=== PATIENT | female | born 1940 | race Caucasian/White ===

== ENCOUNTER → 2022-03-18 | Outpatient (CLI) | payer MEDICARE | END | disposition home or self-care (01) | LOC: SHCH 09:37 | PROVIDERS: ATTEND Internal Medicine Cardiovascular Disease | DX: Q21.1 Atrial septal defect (principal); I47.1 Supraventricular tachycardia; I08.0 Rheumatic disorders of both mitral and aortic valves; I11.9 Hypertensive heart disease without heart failure; M19.90 Unspecified osteoarthritis, unspecified site | CPT/HCPCS: 93306 ==

== ENCOUNTER → 2023-02-18 | Outpatient (CLI) | payer MEDICARE | END | disposition home or self-care (01) | LOC: SHCH 09:55 | PROVIDERS: ATTEND Internal Medicine Cardiovascular Disease | DX: I08.0 Rheumatic disorders of both mitral and aortic valves (principal); I11.9 Hypertensive heart disease without heart failure | CPT/HCPCS: 93306 ==

== ENCOUNTER → 2023-07-06 | Outpatient (CLI) | payer MEDICARE ==
[2023-07-06 16:36] LABS: CREATININE 1.1 mg/dL (0.5-1.5); POTASSIUM 4.5 mmol/L (3.5-5.1)
== END | disposition home or self-care (01) ==
LOC: LAB 11:28
PROVIDERS: ATTEND Internal Medicine Cardiovascular Disease
DX: I10 Essential (primary) hypertension (principal)
CPT/HCPCS: 36415; 80048

== ENCOUNTER → 2023-08-09 | Outpatient (CLI) | payer MEDICARE | END | disposition home or self-care (01) | LOC: SHCH 10:29 | PROVIDERS: ATTEND Internal Medicine Cardiovascular Disease | DX: I08.0 Rheumatic disorders of both mitral and aortic valves (principal); I11.9 Hypertensive heart disease without heart failure | CPT/HCPCS: 93306 ==

== ENCOUNTER → 2023-09-26 | Outpatient (CLI) | payer MEDICARE | END | disposition home or self-care (01) | LOC: SHCH 08:24 | PROVIDERS: ATTEND Internal Medicine Cardiovascular Disease | DX: Q27.1 Congenital renal artery stenosis (principal); I10 Essential (primary) hypertension; I1A.0 Resistant hypertension; R09.89 Other specified symptoms and signs involving the circulatory and respiratory systems | CPT/HCPCS: 93975 ==

== ENCOUNTER → 2023-09-29 | Outpatient (CLI) | payer MEDICARE ==
[2023-09-29 13:10] LABS: CREATININE 1.1 mg/dL (0.5-1.5); MAGNESIUM 2.2 mg/dL (1.80-2.40); POTASSIUM 4.8 mmol/L (3.5-5.1)
== END | disposition home or self-care (01) ==
LOC: LAB 10:38
PROVIDERS: ATTEND Internal Medicine Cardiovascular Disease
DX: I10 Essential (primary) hypertension (principal); R06.09 Other forms of dyspnea; R42 Dizziness and giddiness
CPT/HCPCS: 36415; 80048; 83735

== ENCOUNTER → 2023-10-11 | Outpatient (CLI) | payer MEDICARE ==
[2023-10-11 12:12] LABS: BASOPHILS # (AUTO) 0.03 K/uL (0.00-0.20); BASOPHILS % (AUTO) 0.4 % (0.0-5.0); EOSINOPHILS # (AUTO) 0.13 K/uL (0.00-0.70); EOSINOPHILS % (AUTO) 1.8 % (0.0-8.0); IMMATURE GRANULOCYTE ABSOLUTE 0.03 K/uL (0-1); LYMPHOCYTES % (AUTO) 12.8 % (21.0-51.0); MEAN CORPUSCULAR HEMOGLOBIN 30.8 pg (27.0-33.0); MEAN CORPUSCULAR HGB CONC 33.6 g/dL (32.0-36.0); MEAN CORPUSCULAR VOLUME 91.6 fL (79-99); MONOCYTES % (AUTO) 13.1 % (3.0-13.0); NEUTROPHILS # (AUTO) 5.3 K/uL (1.8-7.7); NEUTROPHILS % (AUTO) 71.5 % (40.0-77.0); PLATELET COUNT (AUTO) 184 K/uL (130-400); RED BLOOD CELL COUNT(AUTO) 3.93 MIL/uL (4.00-5.50); RED CELL DISTRIBUTION WIDTH 14.3 % (11.0-15.5); WHITE BLOOD COUNT (AUTO) 7.4 K/uL (4.8-10.8)
== END | disposition home or self-care (01) ==
LOC: LAB 09:20
PROVIDERS: ATTEND Internal Medicine Cardiovascular Disease
DX: I10 Essential (primary) hypertension (principal); Z79.01 Long term (current) use of anticoagulants
CPT/HCPCS: 36415; 83735; 85025

== ENCOUNTER 2023-11-10 06:20 | Day surgery (SDC) | payer MEDICARE ==
[2023-11-08 11:00] LABS: BASOPHILS # (AUTO) 0.05 K/uL (0.00-0.20); BASOPHILS % (AUTO) 0.6 % (0.0-5.0); EOSINOPHILS % (AUTO) 5.1 % (0.0-8.0); HEMATOCRIT 39.6 % (36-48); IMMATURE GRANULOCYTE ABSOLUTE 0.02 K/uL (0-1); LYMPHOCYTES # (AUTO) 1.1 K/uL (1.0-4.8); LYMPHOCYTES % (AUTO) 13.7 % (21.0-51.0); MEAN CORPUSCULAR HEMOGLOBIN 30.4 pg (27.0-33.0); MEAN CORPUSCULAR HGB CONC 33.1 g/dL (32.0-36.0); MEAN CORPUSCULAR VOLUME 91.9 fL (79-99); MONOCYTES # (AUTO) 0.7 K/uL (0.1-1.0); MONOCYTES % (AUTO) 8.3 % (3.0-13.0); NEUTROPHILS # (AUTO) 5.6 K/uL (1.8-7.7); PLATELET COUNT (AUTO) 169 K/uL (130-400); RED BLOOD CELL COUNT(AUTO) 4.31 MIL/uL (4.00-5.50); RED CELL DISTRIBUTION WIDTH 14.4 % (11.0-15.5); WHITE BLOOD COUNT (AUTO) 7.8 K/uL (4.8-10.8)
[2023-11-08 11:09] LABS: CREATININE 1.1 mg/dL (0.5-1.5); POTASSIUM 5.3 mmol/L (3.5-5.1)
[2023-11-08 11:18] VITALS: BP 113/58; PULSE 69; RESP 17
[2023-11-08 12:12] LABS: INR 1.21 (0.85-1.15); PROTHROMBIN TIME 13.9 SEC (9.6-11.6)
[2023-11-08 12:13] LABS: PARTIAL THROMBOPLASTIN TIME 31.1 SEC (26.3-35.5)
[2023-11-10] VITALS (12 sets, daily range): BP systolic 111–128; BP diastolic 47–59; PULSE 58–74; RESP 13–16
[~2023-11-10] VITALS: Ht 167.6 cm; Wt 82.8 kg
[~2023-11-10 06:20] MED LIST: AMIO200T68 PO; APIX5TAB PO; DILT240C46 PO; FERR-82 PO; LEVO88CA4 PO; MULT-1367 PO; OMEP20CA12 PO; SPIR25TA6 PO; vitamin c PO
[2023-11-10] MEDS ORDERED: 0.9%NACL 1000ML 1,000 ML IV ONE (07:25)
[2023-11-10] MEDS ORDERED: NALOXONE HCL 0.4 MG/1 ML ML ONE (08:06)
[2023-11-10] MEDS ORDERED: FLUMAZENIL 0.1MG/1ML 5ML VIAL IV ONE (08:07)
[2023-11-10] MEDS: MIDAZOLAM HCL 1 MG/ML 2ML VIAL IVP ONE (08:48)
[2023-11-10] MEDS: FENTANYL CITRATE PF 50 MCG/1 ML 2ML VIAL IVP ONE (08:49)
== END 2023-11-10 09:36 | disposition home or self-care (01) ==
LOC: DAH 06:20
PROVIDERS: ATTEND Internal Medicine Cardiovascular Disease
DX: I48.19 Other persistent atrial fibrillation (principal); I34.0 Nonrheumatic mitral (valve) insufficiency; I47.19 Other supraventricular tachycardia; I49.1 Atrial premature depolarization; M19.90 Unspecified osteoarthritis, unspecified site; I10 Essential (primary) hypertension; I25.2 Old myocardial infarction; Z79.01 Long term (current) use of anticoagulants; Z82.3 Family history of stroke; Z88.8 Allergy status to other drugs, medicaments and biological substances; Z79.899 Other long term (current) drug therapy; Z98.890 Other specified postprocedural states
CPT/HCPCS: 80048; 85025; 85610; 85730; 36415; 92960; 93005 ×2; J3010; J7030; J2250; A4620; A4215; A4223 ×3; A4657; A7002; A4222; A4221; A4663; A4216; A4606; 99152; J2310; J3490; G0500

== ENCOUNTER → 2023-11-22 | Outpatient (CLI) | payer MEDICARE ==
[2023-11-22 11:04] LABS: BASOPHILS # (AUTO) 0.05 K/uL (0.00-0.20); BASOPHILS % (AUTO) 0.7 % (0.0-5.0); EOSINOPHILS # (AUTO) 0.28 K/uL (0.00-0.70); EOSINOPHILS % (AUTO) 3.9 % (0.0-8.0); HEMATOCRIT 39.2 % (36-48); IMMATURE GRANULOCYTE ABSOLUTE 0.05 K/uL (0-1); LYMPHOCYTES # (AUTO) 1.2 K/uL (1.0-4.8); LYMPHOCYTES % (AUTO) 16.8 % (21.0-51.0); MEAN CORPUSCULAR HEMOGLOBIN 30.4 pg (27.0-33.0); MEAN CORPUSCULAR HGB CONC 32.7 g/dL (32.0-36.0); MEAN CORPUSCULAR VOLUME 93.1 fL (79-99); MONOCYTES % (AUTO) 13.3 % (3.0-13.0); NEUTROPHILS # (AUTO) 4.7 K/uL (1.8-7.7); NEUTROPHILS % (AUTO) 64.6 % (40.0-77.0); PLATELET COUNT (AUTO) 269 K/uL (130-400); RED BLOOD CELL COUNT(AUTO) 4.21 MIL/uL (4.00-5.50); RED CELL DISTRIBUTION WIDTH 13.8 % (11.0-15.5); WHITE BLOOD COUNT (AUTO) 7.2 K/uL (4.8-10.8)
[2023-11-22 11:28] LABS: ALBUMIN 3.6 g/dL (3.5-5.0); BILIRUBIN,TOTAL 0.4 mg/dL (0.2-1.0); CREATININE 1.2 mg/dL (0.5-1.0); THYROID STIMULATING HORMONE 4.73 uIU/mL (0.36-3.74); TOTAL PROTEIN, SERUM 7.6 g/dL (6.0-8.3)
== END | disposition home or self-care (01) ==
LOC: LAB 08:54
PROVIDERS: ATTEND Internal Medicine Cardiovascular Disease
DX: I34.0 Nonrheumatic mitral (valve) insufficiency (principal); E03.9 Hypothyroidism, unspecified; Z79.01 Long term (current) use of anticoagulants
CPT/HCPCS: 36415; 80053; 84439; 84443; 85025

== ENCOUNTER 2023-12-15 05:50 | Day surgery (SDC) | payer MEDICARE ==
[2023-12-13 10:05] LABS: BASOPHILS # (AUTO) 0.04 K/uL (0.00-0.20); BASOPHILS % (AUTO) 0.7 % (0.0-5.0); EOSINOPHILS # (AUTO) 0.31 K/uL (0.00-0.70); EOSINOPHILS % (AUTO) 5.1 % (0.0-8.0); HEMATOCRIT 38.4 % (36-48); IMMATURE GRANULOCYTE ABSOLUTE 0.02 K/uL (0-1); LYMPHOCYTES # (AUTO) 1.1 K/uL (1.0-4.8); LYMPHOCYTES % (AUTO) 18.8 % (21.0-51.0); MEAN CORPUSCULAR HEMOGLOBIN 30.3 pg (27.0-33.0); MEAN CORPUSCULAR HGB CONC 33.3 g/dL (32.0-36.0); MONOCYTES # (AUTO) 0.7 K/uL (0.1-1.0); NEUTROPHILS # (AUTO) 3.9 K/uL (1.8-7.7); NEUTROPHILS % (AUTO) 64.1 % (40.0-77.0); PLATELET COUNT (AUTO) 202 K/uL (130-400); RED BLOOD CELL COUNT(AUTO) 4.22 MIL/uL (4.00-5.50); RED CELL DISTRIBUTION WIDTH 15.2 % (11.0-15.5); WHITE BLOOD COUNT (AUTO) 6.1 K/uL (4.8-10.8)
[2023-12-13 10:14] VITALS: BP 129/52; PULSE 52; RESP 16
[2023-12-13 10:16] LABS: POTASSIUM 4.7 mmol/L (3.5-5.1)
[2023-12-13 10:18] LABS: INR <= 0.93 (0.85-1.15)
[2023-12-13 10:19] LABS: PARTIAL THROMBOPLASTIN TIME 29.8 SEC (26.3-35.5)
[2023-12-13 10:22] LABS: APPEARANCE,URINE CLEAR (CLEAR); BILIRUBIN,URINE NEGATIVE (NEGATIVE); COLOR,URINE COLORLESS (YELLOW); GLUCOSE, URINE (UA) NEGATIVE (NEGATIVE); KETONES,URINE NEGATIVE (NEGATIVE); LEUKOCYTE ESTERASE ,URINE 75 Leu/uL (NEGATIVE); NITRATE,URINE NEGATIVE (NEGATIVE); OCCULT BLOOD,URINE NEGATIVE (NEGATIVE); PROTEIN,URINE NEGATIVE (NEGATIVE); UROBILINOGEN,URINE 0.2 mg/dL (0.2-1.0)
[2023-12-13 10:27] LABS: ADD UA MICROSCOPIC YES
[2023-12-13 10:34] LABS: BACTERIA,URINE FEW /HPF (None Seen); SQUAMOUS EPITHELIAL CELL,UR RARE /HPF (0-2)
[2023-12-13 10:37] LABS: B-TYPE NATRIURETIC PEPTIDE 219 pg/mL (0-100)
[2023-12-15] VITALS (21 sets, daily range): BP systolic 91–156; BP diastolic 33–107; PULSE 48–65; RESP 11–16
[~2023-12-15] VITALS: Ht 168.9 cm; Wt 82.1 kg
[~2023-12-15 05:50] MED LIST changes: -FERR-82 PO; +MAGNESIUM PO; +ZINC PO
[2023-12-15] MEDS ORDERED: FLUMAZENIL 0.1MG/1ML 5ML VIAL IV ONE (07:25)
[2023-12-15] MEDS ORDERED: NALOXONE HCL 0.4 MG/1 ML ML ONE (07:25)
[2023-12-15] MEDS: LIDOCAINE HCL 2% VISCOUS 15 ML UDCUP PO ONE (07:27)
[2023-12-15] MEDS: 0.9%NACL 1000ML 1,000 ML IV ONE (07:28)
[2023-12-15] MEDS ORDERED: IOHEXOL-350 50ML VIAL IV ONE (08:41)
[2023-12-15] MEDS ORDERED: BIVALIRUDIN 250 MG/VIAL IV ONE (08:41)
[2023-12-15] MEDS ORDERED: LIDOCAINE HCL 400MG/20ML VIAL ONE (08:41)
[2023-12-15] MEDS ORDERED: FENTANYL CITRATE PF 50 MCG/1 ML 2ML VIAL ONE (08:41)
[2023-12-15] MEDS ORDERED: HEPARIN 10,000 UNIT/10ML (1,000 UNIT/ML) VIAL ONE (08:41)
[2023-12-15] MEDS ORDERED: MIDAZOLAM HCL 1 MG/ML 2ML VIAL ONE (08:41)
[2023-12-15] MEDS ORDERED: IOHEXOL 350 MG/ML 100ML INFUS..BTL IV ONE (08:41)
[2023-12-15] MEDS ORDERED: NITROGLYCERIN 50MG VIAL ONE (08:41)
[2023-12-15] MEDS: MIDAZOLAM HCL 1 MG/ML 2ML VIAL IVP ONE (09:14)
[2023-12-15] MEDS: FENTANYL CITRATE PF 50 MCG/1 ML 2ML VIAL IVP ONE (09:15)
[2023-12-15] MEDS ORDERED: LABETALOL 20MG VIAL IV ONE (10:24)
[2023-12-15] MEDS ORDERED: 0.9%NACL 1000ML 1,000 ML IV SCH (11:00)
== END 2023-12-15 14:40 | disposition home or self-care (01) ==
LOC: DAH 05:50
PROVIDERS: ATTEND Internal Medicine Cardiovascular Disease
DX: I34.0 Nonrheumatic mitral (valve) insufficiency (principal); Q21.12 Patent foramen ovale; I27.20 Pulmonary hypertension, unspecified; I25.10 Atherosclerotic heart disease of native coronary artery without angina pectoris; I48.0 Paroxysmal atrial fibrillation; M19.90 Unspecified osteoarthritis, unspecified site; I10 Essential (primary) hypertension; I25.2 Old myocardial infarction; E03.9 Hypothyroidism, unspecified; Z79.01 Long term (current) use of anticoagulants; Z79.899 Other long term (current) drug therapy; Z98.890 Other specified postprocedural states; Z90.89 Acquired absence of other organs; Z90.710 Acquired absence of both cervix and uterus; Z72.89 Other problems related to lifestyle; Z79.890 Hormone replacement therapy
CPT/HCPCS: 80048; 83880 ×2; 85025; 85610; 85730; 87088; 81001; 36415 ×2; 71045; 93005; 93460; 87077; 87186; 93325; 93312; C1894 ×3; C1769; C1760; J3010 ×2; J3490 ×3; J7030; J2250; J1644; Q9967 ×2; A4215; A4335; A4222; A4221; A4663; A4216; A4606; Q9965 ×2; A4223 ×3; A4554; 96360; 96361; 99156; 99157; J0583; J2310

== ENCOUNTER → 2023-12-29 | Outpatient (CLI) | payer MEDICARE ==
[~2023-12-29] MED LIST changes: -AMIO200T68 PO
[2023-12-29 12:29] LABS: CREATININE 1.1 mg/dL (0.5-1.0)
== END | disposition home or self-care (01) ==
LOC: LAB 11:06
PROVIDERS: ATTEND Internal Medicine Cardiovascular Disease
DX: I10 Essential (primary) hypertension (principal)
CPT/HCPCS: 36415; 80048

== ENCOUNTER → 2024-01-06 | Outpatient (CLI) | payer MEDICARE | END | disposition home or self-care (01) | LOC: RAH 08:21 | PROVIDERS: ATTEND Family Medicine | DX: N18.9 Chronic kidney disease, unspecified (principal); R94.4 Abnormal results of kidney function studies | CPT/HCPCS: 76770 ==

== ENCOUNTER 2024-02-21 12:04 | Emergency (ER) | payer MEDICARE ==
[~2024-02-21] VITALS: Ht 167.6 cm; Wt 78.5 kg
[2024-02-21 12:55] LABS: BASOPHILS # (AUTO) 0.03 K/uL (0.00-0.20); BASOPHILS % (AUTO) 0.4 % (0.0-5.0); EOSINOPHILS # (AUTO) 0.18 K/uL (0.00-0.70); EOSINOPHILS % (AUTO) 2.4 % (0.0-8.0); HEMATOCRIT 38.1 % (36-48); IMMATURE GRANULOCYTE ABSOLUTE 0.02 K/uL (0-1); LYMPHOCYTES # (AUTO) 1.2 K/uL (1.0-4.8); LYMPHOCYTES % (AUTO) 15.5 % (21.0-51.0); MEAN CORPUSCULAR HEMOGLOBIN 30.6 pg (27.0-33.0); MEAN CORPUSCULAR HGB CONC 33.6 g/dL (32.0-36.0); MEAN CORPUSCULAR VOLUME 91.1 fL (79-99); MONOCYTES # (AUTO) 0.7 K/uL (0.1-1.0); MONOCYTES % (AUTO) 8.8 % (3.0-13.0); NEUTROPHILS # (AUTO) 5.5 K/uL (1.8-7.7); NEUTROPHILS % (AUTO) 72.6 % (40.0-77.0); PLATELET COUNT (AUTO) 201 K/uL (130-400); RED BLOOD CELL COUNT(AUTO) 4.18 MIL/uL (4.00-5.50); RED CELL DISTRIBUTION WIDTH 14.5 % (11.0-15.5); WHITE BLOOD COUNT (AUTO) 7.6 K/uL (4.8-10.8)
[2024-02-21 13:06] LABS: CREATININE 1.3 mg/dL (0.5-1.0); POTASSIUM 4.3 mmol/L (3.5-5.1)
[2024-02-21 13:10] LABS: ALBUMIN 3.6 g/dL (3.5-5.0); BILIRUBIN,TOTAL 0.3 mg/dL (0.2-1.0); MAGNESIUM 2.2 mg/dL (1.80-2.40); TOTAL PROTEIN, SERUM 7.2 g/dL (6.0-8.3)
[2024-02-21 15:23] LABS: ADD UA MICROSCOPIC YES; APPEARANCE,URINE CLOUDY (CLEAR); BILIRUBIN,URINE NEGATIVE (NEGATIVE); COLOR,URINE LIGHT-YELLOW (YELLOW); GLUCOSE, URINE (UA) NEGATIVE (NEGATIVE); KETONES,URINE NEGATIVE (NEGATIVE); LEUKOCYTE ESTERASE ,URINE 500 Leu/uL (NEGATIVE); NITRATE,URINE NEGATIVE (NEGATIVE); OCCULT BLOOD,URINE NEGATIVE (NEGATIVE); PH,URINE 6.5 (5.0-8.0); PROTEIN,URINE NEGATIVE (NEGATIVE); UROBILINOGEN,URINE 0.2 mg/dL (0.2-1.0)
[2024-02-21 15:26] LABS: BACTERIA,URINE RARE /HPF (None Seen); OTHER CASTS, URINE 2 /LPF (None Seen); SQUAMOUS EPITHELIAL CELL,UR RARE /HPF (0-2); WBC,URINE 51-100 /HPF (0-1)
[2024-02-21] MEDS: FLECAINIDE ACETATE 100 MG TABLET PO SCH (15:56)
[2024-02-21] MEDS ORDERED: CEPH500B PO (17:23)
[2024-02-21] MEDS ORDERED: CEFTRIAXONE 1G VIAL IVPB ONE (17:30)
[2024-02-21] MEDS: CEPHALEXIN 500 MG CAPSULE PO ONE (18:24)
[2024-02-21 18:26] VITALS: BP 131/82; PULSE 97; RESP 18; O2SAT 98
== END 2024-02-21 18:31 | disposition home or self-care (01) ==
LOC: EDH 12:04
DX: I48.0 Paroxysmal atrial fibrillation (principal); N39.0 Urinary tract infection, site not specified; I10 Essential (primary) hypertension; Z79.899 Other long term (current) drug therapy; Z90.49 Acquired absence of other specified parts of digestive tract; Z90.710 Acquired absence of both cervix and uterus; Z98.890 Other specified postprocedural states
CPT/HCPCS: 36415; 80053; 81001; 83735; 84484; 85025; 87077; 87086; 87186; 93005

== ENCOUNTER 2024-02-29 06:08 | Day surgery (SDC) | payer MEDICARE ==
[2024-02-28 13:42] LABS: BASOPHILS # (AUTO) 0.04 K/uL (0.00-0.20); BASOPHILS % (AUTO) 0.7 % (0.0-5.0); EOSINOPHILS # (AUTO) 0.15 K/uL (0.00-0.70); EOSINOPHILS % (AUTO) 2.7 % (0.0-8.0); HEMATOCRIT 40.3 % (36-48); IMMATURE GRANULOCYTE ABSOLUTE 0.01 K/uL (0-1); LYMPHOCYTES # (AUTO) 1.4 K/uL (1.0-4.8); MEAN CORPUSCULAR HEMOGLOBIN 31.1 pg (27.0-33.0); MEAN CORPUSCULAR HGB CONC 33.5 g/dL (32.0-36.0); MEAN CORPUSCULAR VOLUME 92.9 fL (79-99); MONOCYTES # (AUTO) 0.5 K/uL (0.1-1.0); NEUTROPHILS # (AUTO) 3.6 K/uL (1.8-7.7); NEUTROPHILS % (AUTO) 63.4 % (40.0-77.0); PLATELET COUNT (AUTO) 189 K/uL (130-400); RED BLOOD CELL COUNT(AUTO) 4.34 MIL/uL (4.00-5.50); RED CELL DISTRIBUTION WIDTH 14.5 % (11.0-15.5); WHITE BLOOD COUNT (AUTO) 5.7 K/uL (4.8-10.8)
[2024-02-28 13:52] VITALS: BP 144/77; PULSE 86; RESP 18
[2024-02-28 13:56] LABS: CREATININE 1.1 mg/dL (0.5-1.0); POTASSIUM 4.7 mmol/L (3.5-5.1)
[2024-02-28 13:58] LABS: INR 1.01 (0.85-1.15); PROTHROMBIN TIME 10.7 SEC (9.6-11.6)
[2024-02-29] VITALS (13 sets, daily range): BP systolic 94–116; BP diastolic 41–57; PULSE 46–83; RESP 14–18
[~2024-02-29] VITALS: Ht 167.6 cm; Wt 79.6 kg
[~2024-02-29 06:08] MED LIST changes: +BACL10TA PO; -DILT240C46 PO; +FLEC50TA3 PO; +FURO20TA4 PO; +MAGN250C PO; -MAGNESIUM PO; +METO-408 PO; +MULT-1250 PO; -MULT-1367 PO; +OMEG100033 PO; -ZINC PO; +ZINC50TA64 PO; +[UNRECOGNIZED DRUG - CODE] PO; -vitamin c PO
[2024-02-29] MEDS: 0.9%NACL 1000ML 1,000 ML IV ONE (07:19)
[2024-02-29] MEDS ORDERED: FLUMAZENIL 0.1MG/1ML 5ML VIAL IV ONE (07:42)
[2024-02-29] MEDS ORDERED: NALOXONE HCL 0.4 MG/1 ML ML ONE (07:42)
[2024-02-29] MEDS ORDERED: FLEC100T3 PO (09:11)
[2024-02-29] MEDS: FENTANYL CITRATE PF 50 MCG/1 ML 2ML VIAL IVP ONE (10:51)
[2024-02-29] MEDS: MIDAZOLAM HCL 1 MG/ML 2ML VIAL IVP ONE (10:51)
== END 2024-02-29 10:05 | disposition home or self-care (01) ==
LOC: DAH 06:08
PROVIDERS: ATTEND Internal Medicine Cardiovascular Disease
DX: I47.19 Other supraventricular tachycardia (principal); I48.0 Paroxysmal atrial fibrillation; I44.7 Left bundle-branch block, unspecified; I10 Essential (primary) hypertension; I34.0 Nonrheumatic mitral (valve) insufficiency; M19.90 Unspecified osteoarthritis, unspecified site; Z82.3 Family history of stroke; Z88.8 Allergy status to other drugs, medicaments and biological substances; Z79.01 Long term (current) use of anticoagulants; Z79.899 Other long term (current) drug therapy; Z98.890 Other specified postprocedural states; Z90.711 Acquired absence of uterus with remaining cervical stump
CPT/HCPCS: 80048; 85025; 85610; 85730; 36415; 92960; 93005 ×2; J3010; J7030; J2250; A4620; A4215; A4657; A4222; A4221; A4663; A4216; A4606; A4223 ×3; 99152; J2310; J3490; G0500

== ENCOUNTER 2024-06-05 06:39 | Day surgery (SDC) | payer MEDICARE ==
[2024-06-01 08:45] LABS: CREATININE 1.2 mg/dL (0.5-1.0); POTASSIUM 3.9 mmol/L (3.5-5.1)
[2024-06-01 08:57] LABS: BASOPHILS # (AUTO) 0.04 K/uL (0.00-0.20); BASOPHILS % (AUTO) 0.5 % (0.0-5.0); EOSINOPHILS # (AUTO) 0.17 K/uL (0.00-0.70); EOSINOPHILS % (AUTO) 2.3 % (0.0-8.0); HEMATOCRIT 39.8 % (36-48); IMMATURE GRANULOCYTE ABSOLUTE 0.03 K/uL (0-1); LYMPHOCYTES % (AUTO) 13.3 % (21.0-51.0); MEAN CORPUSCULAR HEMOGLOBIN 30.8 pg (27.0-33.0); MEAN CORPUSCULAR HGB CONC 32.7 g/dL (32.0-36.0); MEAN CORPUSCULAR VOLUME 94.3 fL (79-99); MONOCYTES # (AUTO) 0.9 K/uL (0.1-1.0); MONOCYTES % (AUTO) 12.5 % (3.0-13.0); NEUTROPHILS # (AUTO) 5.3 K/uL (1.8-7.7); PLATELET COUNT (AUTO) 150 K/uL (130-400); RED BLOOD CELL COUNT(AUTO) 4.22 MIL/uL (4.00-5.50); RED CELL DISTRIBUTION WIDTH 15.5 % (11.0-15.5); WHITE BLOOD COUNT (AUTO) 7.5 K/uL (4.8-10.8)
[2024-06-01 09:15] LABS: INR 1.04 (0.85-1.15); PROTHROMBIN TIME 11.2 SEC (9.6-11.6)
[2024-06-01 09:17] LABS: PARTIAL THROMBOPLASTIN TIME 26.6 SEC (26.3-35.5)
[2024-06-01 09:20] VITALS: BP 150/84; PULSE 75; RESP 18; TEMP 97.3
[~2024-06-05] VITALS: Ht 165.1 cm; Wt 81.6 kg
[2024-06-05] VITALS (22 sets, daily range): BP systolic 63–171; BP diastolic 67–93; PULSE 63–73; RESP 12–20; TEMP 97–98
[~2024-06-05 06:39] MED LIST changes: +CALC-1209 PO; +DIPH-1242 PO; +FLEC100T3 PO; -FLEC50TA3 PO; -MAGN250C PO; -ZINC50TA64 PO; +[UNRECOGNIZED DRUG - OTHER] PO; +cranberry PO; +probiotic PO
[2024-06-05] MEDS: 0.9%NACL 1000ML 1,000 ML IV ONE (08:30)
[2024-06-05] MEDS ORDERED: dexaMETHasone SOD PHOSPHATE 10MG/ML 1ML VIAL ONE (08:47)
[2024-06-05] MEDS ORDERED: phenylEPHRINE HCL 10 MG/ML 1ML VIAL IV ONE (08:47)
[2024-06-05] MEDS ORDERED: LIDOCAINE HCL MPF 1% 5ML VIAL ONE (08:47)
[2024-06-05] MEDS ORDERED: ePHEDrine SULFate 50 MG/ML AMPULE ONE (08:48)
[2024-06-05] MEDS ORDERED: FENTanyl CITRate PF 50 MCG/1 ML 2ML VIAL ONE (08:48)
[2024-06-05] MEDS ORDERED: proPOFol 10 MG/ML 20ML VIAL IV ONE (08:48)
[2024-06-05] MEDS ORDERED: rocuRONium bROMide 10MG/1ML 5ML VL ONE (08:48)
[2024-06-05] MEDS ORDERED: ondanSETRON 4MG INJ ONE (08:48)
[2024-06-05] MEDS ORDERED: LIDOCAINE HCL 400MG/20ML VIAL ONE (09:43)
[2024-06-05] MEDS ORDERED: HEParin 10,000 UNIT/10ML (1,000 UNIT/ML) VIAL ONE ×2 (09:44→11:16)
[2024-06-05] MEDS ORDERED: PROTamine SULFate 10 MG/ML 25ML VIAL IV ONE (12:18)
[2024-06-05] MEDS ORDERED: SUCR1TAB2 PO (12:47)
[2024-06-05] MEDS ORDERED: acetaMINOPHEN 325 MG TAB PO PRN (13:00)
[2024-06-05] MEDS ORDERED: SUCRALFATE 1 GM/10 ML PO ONE (13:00)
== END 2024-06-05 18:40 | disposition home or self-care (01) ==
LOC: DAH 06:39
PROVIDERS: ATTEND Internal Medicine Cardiovascular Disease
DX: I48.0 Paroxysmal atrial fibrillation (principal); I47.19 Other supraventricular tachycardia; I48.4 Atypical atrial flutter; I44.7 Left bundle-branch block, unspecified; I44.1 Atrioventricular block, second degree; I10 Essential (primary) hypertension; G47.30 Sleep apnea, unspecified; Z99.89 Dependence on other enabling machines and devices; Z96.653 Presence of artificial knee joint, bilateral; Z90.710 Acquired absence of both cervix and uterus; Z90.89 Acquired absence of other organs; Z79.01 Long term (current) use of anticoagulants; Z79.899 Other long term (current) drug therapy
CPT/HCPCS: 80048; 85025; 85610; 85730; 36415; 93005 ×3; 93656; 93655; 85347 ×5; 82948 ×2; A4344; C1894 ×4; C1732 ×3; A4649 ×2; C1766; J3010; J3490 ×4; J1100; J7030; J1644 ×2; J2704; J2405; J2371; A4215; A4222; A4221; A4663; A4216; A4606; J2720; A4223 ×3

== ENCOUNTER 2024-07-20 07:07 | Day surgery (SDC) | payer MEDICARE ==
[2024-07-18 09:20] LABS: BASOPHILS # (AUTO) 0.03 K/uL (0.00-0.20); BASOPHILS % (AUTO) 0.6 % (0.0-5.0); EOSINOPHILS % (AUTO) 3.8 % (0.0-8.0); HEMATOCRIT 38.9 % (36-48); IMMATURE GRANULOCYTE ABSOLUTE 0.02 K/uL (0-1); LYMPHOCYTES # (AUTO) 1.1 K/uL (1.0-4.8); LYMPHOCYTES % (AUTO) 20.2 % (21.0-51.0); MEAN CORPUSCULAR HEMOGLOBIN 30.8 pg (27.0-33.0); MEAN CORPUSCULAR HGB CONC 32.9 g/dL (32.0-36.0); MEAN CORPUSCULAR VOLUME 93.7 fL (79-99); MONOCYTES # (AUTO) 0.5 K/uL (0.1-1.0); MONOCYTES % (AUTO) 10.3 % (3.0-13.0); NEUTROPHILS # (AUTO) 3.4 K/uL (1.8-7.7); NEUTROPHILS % (AUTO) 64.7 % (40.0-77.0); PLATELET COUNT (AUTO) 169 K/uL (130-400); RED BLOOD CELL COUNT(AUTO) 4.15 MIL/uL (4.00-5.50); RED CELL DISTRIBUTION WIDTH 14.6 % (11.0-15.5); WHITE BLOOD COUNT (AUTO) 5.2 K/uL (4.8-10.8)
[2024-07-18 09:21] VITALS: BP 164/89; PULSE 83; RESP 17; TEMP 98
[2024-07-18 09:30] LABS: CREATININE 1.1 mg/dL (0.5-1.0); POTASSIUM 4.1 mmol/L (3.5-5.1)
[2024-07-20] VITALS (8 sets, daily range): BP systolic 125–158; BP diastolic 57–73; PULSE 50–62; RESP 16–18; TEMP 96.6–98
[~2024-07-20] VITALS: Ht 166.4 cm; Wt 77.6 kg
[~2024-07-20 07:07] MED LIST changes: +AMIO200T68 PO; -CALC-1209 PO; -DIPH-1242 PO; -FLEC100T3 PO; +ZINC50TA15 PO; -[UNRECOGNIZED DRUG - OTHER] PO; -cranberry PO; -probiotic PO
--- NOTE | 2024-07-20 07:52 | EKG ---
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
[2024-07-20] MEDS: 0.9%NACL 1000ML 1,000 ML IV ONE (08:39)
[2024-07-20] MEDS ORDERED: proPOFol 10 MG/ML 20ML VIAL IV ONE (10:13)
--- NOTE | 2024-07-20 10:36 | NUR ---
CARDIOVERSION PROCEDURE DONE BY DR. MORATAYA TIME OUT: 10:15 ANESTHESIA STARTED AT 10:16 CARDIOVERSION WITH 200 JOULES AT 10:17 AWAKE, ALERT AND FULLY ORIENTED AT 10:22
--- NOTE | 2024-07-20 11:01 | PRN ---
Procedure Note INDICATION FOR PROCEDURE: Persistent atrial fibrillation PROCEDURE: Cardioversion DATE OF PROCEDURE: 07/20/2024 PRODUCT MARKETING CONSULTANT: Matthew Morataya MD PROCEDURE NOTE: The patient was brought to the day patient area in a fasting state. Anesthesia was provided by the anesthesia service. A synchronized shock of 200 joules was delivered resulting in sinus rhythm. The patient tolerated the procedure well. There were no complications. COMPLICATIONS: None IMPRESSION: Persistent atrial fibrillation status post successful cardioversion PLAN: 1. The patient will be observed and discharged home later today. 2. Follow-up with me in the office in approximately two weeks. MATTHEW MORATAYA MD Jul 20, 2024 11:01
[2024-07-20] MEDS ORDERED: AMIO200T68 PO (11:03)
--- NOTE | 2024-07-20 21:46 | EKG ---
[facility] Test Date: 2024-07-20 Test Time: 11:21:41 Pat Name: JORI BROWN Department: [facility] Room: Gender: F Plc Programmer: [id number] : 1940 Requested By: HANNAH MORATAYA Order Number: [id number] Reading MD: Michael Dubose Measurements Intervals [place] Rate: 52 P: 7 FL: 203 QRS: 17 QRSD: 105 T: -4 QT: 498 QTc: 456 Interpretive Statements Sinus rhythm Atrial premature complex Left ventricular hypertrophy Compared to ECG 07/20/2024 08:11:32 Atrial premature complex(es) now present Left ventricular hypertrophy now present Atrial fibrillation no longer present Myocardial infarct finding no longer present Electronically Signed On 07-23-2024 19:54:24 PREPARATION OPERATOR by Michael Dubose Please click the below link to view image of tracing.
== END 2024-07-20 11:00 | disposition home or self-care (01) ==
LOC: DAH 07:07
PROVIDERS: ATTEND Internal Medicine Cardiovascular Disease
DX: I48.19 Other persistent atrial fibrillation (principal); I10 Essential (primary) hypertension; I25.10 Atherosclerotic heart disease of native coronary artery without angina pectoris; I25.2 Old myocardial infarction; I49.1 Atrial premature depolarization; G47.30 Sleep apnea, unspecified; Z79.01 Long term (current) use of anticoagulants; Z98.890 Other specified postprocedural states; Z90.89 Acquired absence of other organs; Z96.653 Presence of artificial knee joint, bilateral
CPT/HCPCS: 80048; 85025; 36415; 92960; 93005 ×2; J7030; J2704; A4620; A4615; A4215; A4222; A4221; A4663; A4216; A4606; A4223 ×3; 99152; G0500; J3490